=== PATIENT | male | born 1975 | race Caucasian/White ===

== ENCOUNTER 2020-10-15 02:05 | Emergency (ER) | payer OTHER ==
[~2020-10-15] VITALS: Ht 172.7 cm; Wt 124.7 kg
[~2020-10-15 02:05] MED LIST: NAPR500 PO; TRAM50 PO
== END 2020-10-15 02:55 | disposition home or self-care (01) ==
LOC: ER 02:05
DX: G56.01 Carpal tunnel syndrome, right upper limb (principal)
CPT/HCPCS: 29125; 99283-25; A9270; J1100

== ENCOUNTER 2021-06-01 07:25 | Day surgery (SDC) | payer OTHER ==
[~2021-06-01] VITALS: Ht 172.7 cm; Wt 132.5 kg
== END 2021-06-01 09:18 | disposition home or self-care (01) ==
LOC: ORSCSDS 07:25
PROVIDERS: Orthopaedic Surgery
PROC: 01N50ZZ Release Median Nerve, Open Approach (ICD-10-PCS; principal; 2021-06-01 08:30)
DX: G56.02 Carpal tunnel syndrome, left upper limb (principal); F41.8 Other specified anxiety disorders; E66.01 Morbid (severe) obesity due to excess calories; Z68.41 Body mass index [BMI] 40.0-44.9, adult; Z79.899 Other long term (current) drug therapy
CPT/HCPCS: J1100; J1885; J2405; J2704; J7120

== ENCOUNTER → 2023-06-19 | Outpatient (CLI) | payer OTHER ==
[2023-06-19 12:59] LABS: BASOPHILS ABSOLUTE AUTO 0.01 K/mm3 (0.00-0.23); BASOPHILS PERCENT AUTO 0 % (0-2); EOSINOPHILS ABSOLUTE AUTO 0.07 K/mm3 (0.00-0.68); EOSINOPHILS PERCENT AUTO 1 % (0-6); Hematocrit 50.2 % (37.0-53.0); Hemoglobin 17.4 g/dL (13.5-17.5); IMMATURE GRAN ABSOLUTE AUTO 0.01 K/mm3 (0.00-0.10); IMMATURE GRAN PERCENT AUTO 0 % (0-1); LYMPHOCYTES ABSOLUTE AUTO 0.87 K/mm3 (0.84-5.20); LYMPHOCYTES PERCENT AUTO 18 % (21-46); MONOCYTES ABSOLUTE AUTO 0.53 K/mm3 (0.16-1.47); MONOCYTES PERCENT AUTO 11 % (4-13); Mean Corpuscular HGB 29.2 pg (26.0-34.0); Mean Corpuscular HGB Conc 34.7 g/dL (31.5-36.5); Mean Corpuscular Volume 84 fL (80-100); Mean Platelet Volume 10.2 fL (9.1-12.4); NEUTROPHILS ABSOLUTE AUTO 3.35 K/mm3 (1.96-9.15); NEUTROPHILS PERCENT AUTO 69 % (41-73); Platelet Count 194 K/mm3 (150-400); RDW Coefficient Variation 13.1 % (11.7-14.2); RDW Standard Deviation 39.8 fL (35.1-46.3); Red Blood Cell Count 5.95 M/mm3 (4.30-5.90); White Blood Cell Count 4.84 K/mm3 (4.00-11.30)
[2023-06-21 18:07] LABS: ANA DIRECT Negative (Negative); ANTI-DNA (DS) AB QN 1 IU/mL (0-9); RNP ANTIBODIES 0.8 AI (0.0-0.9); SJOGREN'S ANTI-SS-A 0.2 AI (0.0-0.9); SJOGREN'S ANTI-SS-B <0.2 AI (0.0-0.9); SMITH ANTIBODIES <0.2 AI (0.0-0.9)
== END | disposition home or self-care (01) ==
LOC: LAB SHORT 12:28 → LAB 12:28
PROVIDERS: Physician Assistant
DX: M25.469 Effusion, unspecified knee (principal)
CPT/HCPCS: 85025; 85651; 86140; 86200; 86225; 86235; 86430